=== PATIENT | female | born 1975 | race Caucasian/White ===

== ENCOUNTER 2017-05-08 12:44 | Emergency (ER) | payer OTHER ==
[~2017-05-08] VITALS: Ht 154.9 cm; Wt 86.2 kg
[2017-05-08] MEDS ORDERED: FA-80.8 M1 PO (13:04)
[2017-05-08] MEDS ORDERED: [UNRECOGNIZED DRUG - OTHER] PO (13:04)
[2017-05-08] MEDS ORDERED: PREDNISOLO20 MG/5 ML PO (13:05)
[2017-05-08] MEDS ORDERED: SYNTHROID75 MCG PO (13:05)
[2017-05-08] MEDS ORDERED: PHENAGIL TABLE1 EACH (13:06)
== END 2017-05-08 16:50 | disposition home or self-care (01) ==
LOC: ER 12:44
DX: J45.998 Other asthma (principal)

== ENCOUNTER 2017-05-12 12:00 | Emergency (ER) | payer OTHER ==
[~2017-05-12] VITALS: Ht 154.9 cm; Wt 86.2 kg
[~2017-05-12 12:00] MED LIST: FA-80.8 M1 PO; PHENAGIL TABLE1 EACH; PREDNISOLO20 MG/5 ML PO; SYNTHROID75 MCG PO; [UNRECOGNIZED DRUG - OTHER] PO
== END 2017-05-12 14:50 | disposition home or self-care (01) ==
LOC: ER 12:00
DX: B34.9 Viral infection, unspecified (principal)